=== PATIENT | male | born 1955 | race Caucasian/White ===

== ENCOUNTER 2018-09-04 08:49 | Emergency (ER) | payer MEDICARE ==
[~2018-09-04] VITALS: Ht 182.9 cm; Wt 92.0 kg
[2018-09-04] MEDS ORDERED: MEDDOSEPAK PO (10:07)
[2018-09-04] MEDS ORDERED: TORADOL PO (10:07)
[2018-09-04] MEDS ORDERED: XARELTO20 MG PO (10:41)
[2018-09-04] MEDS ORDERED: CARTIA XT180 MG PO (10:41)
[2018-09-04] MEDS ORDERED: ZESTRIL10 M1 PO (10:41)
[2018-09-04] MEDS ORDERED: LIPITOR40 M1 PO (10:41)
[2018-09-04 10:52] VITALS: BP 168/75
== END 2018-09-04 10:58 | disposition home or self-care (01) ==
LOC: ED 08:49
DX: M25.511 Pain in right shoulder (principal); I10 Essential (primary) hypertension; I25.2 Old myocardial infarction; E78.00 Pure hypercholesterolemia, unspecified

== ENCOUNTER 2018-10-04 10:46 | Emergency (ER) | payer MEDICARE ==
[~2018-10-04] VITALS: Ht 182.9 cm; Wt 90.0 kg
[~2018-10-04 10:46] MED LIST: CARTIA XT180 MG PO; LIPITOR40 M1 PO; MEDDOSEPAK PO; TORADOL PO; XARELTO20 MG PO; ZESTRIL10 M1 PO
[2018-10-04] MEDS ORDERED: PREDNISONE20 MG PO ×2 (11:03→11:18)
[2018-10-04] MEDS ORDERED: DOXYCYC MONO100 M2 PO ×2 (11:03→11:18)
[2018-10-04] MEDS ORDERED: ACYCLOVIR400 MG PO (11:03)
[2018-10-04] MEDS ORDERED: ZOVIRAX400 MG PO (11:18)
[2018-10-04 11:25] VITALS: BP 138/76
== END 2018-10-04 11:25 | disposition home or self-care (01) ==
LOC: ED 10:46
DX: G51.0 Bell's palsy (principal)

== ENCOUNTER 2019-03-10 12:28 | Emergency (ER) | payer MEDICARE ==
[~2019-03-10] VITALS: Ht 182.9 cm; Wt 90.0 kg
[~2019-03-10 12:28] MED LIST changes: +ACYCLOVIR400 MG PO; +DOXYCYC MONO100 M2 PO; +PREDNISONE20 MG PO; +ZOVIRAX400 MG PO
[2019-03-10] MEDS ORDERED: PROCTO-MED HC2.5 % RE (15:20)
[2019-03-10] MEDS ORDERED: ANUCORT-HC25 MG RE (15:20)
[2019-03-10 15:27] VITALS: BP 133/99
== END 2019-03-10 15:34 | disposition home or self-care (01) ==
LOC: ED 12:28
DX: K64.4 Residual hemorrhoidal skin tags (principal); I10 Essential (primary) hypertension; I25.2 Old myocardial infarction